=== PATIENT | male | born 1975 | race Caucasian/White ===

== ENCOUNTER → 2020-08-23 08:18 | Outpatient (BNVA) | payer SELFPAY | PROVIDERS: Family Provider Family Medicine; Visit Provider Nurse Practitioner | DX: I69.398 Other sequelae of cerebral infarction (principal); H53.8 Other visual disturbances; I77.74 Dissection of vertebral artery; I10 Essential (primary) hypertension; F17.210 Nicotine dependence, cigarettes, uncomplicated | CPT/HCPCS: 99205 ==

== ENCOUNTER 2020-09-06 09:34 | Outpatient (CLI) | payer SELFPAY ==
--- NOTE | 2020-09-06 09:30 | CT_ITS ---
WS: [id number] CT ANGIOGRAM CEREBRAL AND CAROTID ARTERIES NONCONTRAST HEAD CT. HISTORY: I63.9 - Cerebral infarction, unspecified TECHNIQUE: CT angiogram is performed of the carotid and cerebral arteries. During arterial injection imaging is obtained from the skull vertex to the aortic arch in 1.25 mm imaging. Coronal and sagittal reformats are submitted. Additional multi planar reformats of the carotid and cerebral arteries are submitted, MIP imaging also reviewed. NASCET criteria utilized. All CT scans at [facility] use at least one of these dose optimization techniques: automated exposure control; mA and/or kV ad justment per patient size (includes targeted exams where dose is matched to clinical indication); or iterative reconstruction. CONTRAST: Omnipaque 350; 95 mL IV. DLP: 2200.87 mGycm COMPARISON: 08/10/[address] was first performed. No evidence for an acute hemorrhage. 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 There is no associated hemorrhage. This infarct was also described on 08/11/2020. New since 08/10/2020. Carotid Angiogram: Right carotid: Common carotid artery: Arises normally from the innominate artery. No significant plaque or stenosis. Internal carotid artery: No plaque or stenosis. External carotid artery: Patent. Left carotid: Common carotid artery: Arises normally from the aorta. No significant plaque or stenosis. Internal carotid artery: Mild scattered plaque and intimal thickening at the bifurcation. No signific ant stenosis. External carotid artery: Patent. Right vertebral artery: Small caliber but patent. Left vertebral artery: Moderate stenosis involving the origin of the LEFT vertebral artery. Mild athe rosclerosis otherwise. Subclavian arteries: No stenosis or significant abnormality. Upper thorax: Normal. Thyroid gland: Normal. Osseous structures: Unremarkable. CEREBRAL ANGIOGRAM: Intracranial vertebral arteries: Normal with no significant atherosclerosis. Basilar artery: No significant stenosis or occlusion. No aneurysm. Intracranial Internal carotid arteries: Very mild atherosclerotic plaque. Middle cerebral arteries: Mild narrowing of the middle cerebral arteries bilaterally. No complete occ lusions. Mild stenosis involving the M1 segments. Anterior cerebral arteries and ACOM: Normal. Posterior cerebral arteries and PCOM's: Normal. Dural venous sinuses are normally enhancing. Mastoid air cells: Normal. Paranasal sinuses: Normal. Calvarium: Normal. CT/CT angio headneck* [id number] IMPRESSION: 1. Mild atherosclerosis intracranial carotid arteries and at the LEFT carotid bifurcation. No high-grade stenoses. 2. Mild atherosclerosis M1 segments bilaterally with no high-grade or complete obstruction. 3. Patent bilateral posterior cerebral arteries. 4. Remote large RIGHT occipital lobe infarct.
[2020-09-06] MEDS: iohexol 350 mg/mL 100 mL Btl IV (10:21)
== END 2020-09-06 09:35 | disposition home or self-care (01) ==
LOC: RADWPI 09:38
PROVIDERS: Visit Provider Nurse Practitioner
DX: I63.9 Cerebral infarction, unspecified (principal)
CPT/HCPCS: 70496; 70498; Q9967

== ENCOUNTER → 2020-11-03 11:45 | Outpatient (BNVA) | payer SELFPAY | PROVIDERS: Visit Provider Nurse Practitioner | DX: I69.398 Other sequelae of cerebral infarction (principal); H53.9 Unspecified visual disturbance; I77.74 Dissection of vertebral artery; F17.210 Nicotine dependence, cigarettes, uncomplicated | CPT/HCPCS: 99213 ==